=== PATIENT | female | born 1985 | race Caucasian/White ===

== ENCOUNTER 2017-11-17 17:49 | Emergency (ER) | payer MEDICAID, OTHER ==
[~2017-11-17] VITALS: Ht 5367.7 cm; Wt 71.7 kg
[~2017-11-17 17:49] MED LIST: CHLO25CA10 PO; LORA-269 PO; SELE120S3 TP
[2017-11-17] MEDS ORDERED: ketorolac trometh inj. 60 MG/2 ML VIAL IM ONE (18:50)
[2017-11-17] MEDS ORDERED: TRAM50TA2 PO (18:50)
[2017-11-17] MEDS ORDERED: DICL50TA8 PO (18:50)
[2017-11-17] MEDS ORDERED: CYCL-1 PO (18:50)
[2017-11-17] MEDS ORDERED: HYDROcodone/acetaminophen 5mg/325mg tablet PO ONE (18:50)
[2017-11-17 19:14] VITALS: BP 141/83
== END 2017-11-17 19:05 | disposition home or self-care (01) ==
LOC: ER 17:49
DX: M54.5 Low back pain (principal); F17.200 Nicotine dependence, unspecified, uncomplicated; F15.90 Other stimulant use, unspecified, uncomplicated; Z88.8 Allergy status to other drugs, medicaments and biological substances
CPT/HCPCS: 96372; 99283; J1885

== ENCOUNTER 2017-12-16 15:01 | Emergency (ER) | payer MEDICAID, OTHER ==
[~2017-12-16] VITALS: Ht 162.6 cm; Wt 87.6 kg
[~2017-12-16 15:01] MED LIST changes: +CYCL-1 PO; +DICL50TA8 PO; +TRAM50TA2 PO
[2017-12-16 16:46] VITALS: BP 151/93
[2017-12-16] MEDS ORDERED: LORA1TAB PO (16:54)
[2017-12-16] MEDS ORDERED: LORazepam 1 MG tablet PO ONE (16:55)
== END 2017-12-16 17:58 | disposition home or self-care (01) ==
LOC: ER 15:02
DX: F41.9 Anxiety disorder, unspecified (principal); F32.9 Major depressive disorder, single episode, unspecified; F15.10 Other stimulant abuse, uncomplicated; Z88.8 Allergy status to other drugs, medicaments and biological substances; Z79.899 Other long term (current) drug therapy
CPT/HCPCS: 93005; 99284

== ENCOUNTER 2018-05-17 20:13 | Emergency (ER) | payer MEDICAID, OTHER ==
[~2018-05-17] VITALS: Ht 162.6 cm; Wt 80.0 kg
[~2018-05-17 20:13] MED LIST changes: -TRAM50TA2 PO
[2018-05-17] MEDS ORDERED: HYDR-565 PO (20:39)
[2018-05-17] MEDS ORDERED: HYDROcodone/acetaminophen 5mg/325mg tablet PO ONE (20:40)
[2018-05-17 20:57] VITALS: BP 132/99
== END 2018-05-17 20:58 | disposition home or self-care (01) ==
LOC: ER 20:14
DX: S61.011A Laceration without foreign body of right thumb without damage to nail, initial encounter (principal); F15.90 Other stimulant use, unspecified, uncomplicated; Z88.8 Allergy status to other drugs, medicaments and biological substances; Z79.899 Other long term (current) drug therapy; Z79.1 Long term (current) use of non-steroidal anti-inflammatories (NSAID); X58.XXXA Exposure to other specified factors, initial encounter; Y93.89 Activity, other specified; Y92.89 Other specified places as the place of occurrence of the external cause; Y99.8 Other external cause status
CPT/HCPCS: 99283

== ENCOUNTER 2018-05-23 20:14 | Emergency (ER) | payer OTHER ==
[~2018-05-23] VITALS: Ht 162.6 cm; Wt 81.8 kg
[2018-05-23 20:20] VITALS: BP 129/84
[2018-05-23] MEDS ORDERED: HYDROcodone/acetaminophen 10/325mg tab PO ONE (21:15)
[2018-05-23] MEDS ORDERED: HYDR-3965 PO (21:31)
[2018-05-23] MEDS ORDERED: CEPH500C5 PO (21:31)
== END 2018-05-23 21:48 | disposition home or self-care (01) ==
LOC: ER 20:15
DX: S61.011D Laceration without foreign body of right thumb without damage to nail, subsequent encounter (principal); L08.9 Local infection of the skin and subcutaneous tissue, unspecified; N39.0 Urinary tract infection, site not specified; F41.9 Anxiety disorder, unspecified; F32.9 Major depressive disorder, single episode, unspecified; F15.90 Other stimulant use, unspecified, uncomplicated; Z88.1 Allergy status to other antibiotic agents; Z88.6 Allergy status to analgesic agent; Z88.8 Allergy status to other drugs, medicaments and biological substances; Z79.899 Other long term (current) drug therapy; X58.XXXD Exposure to other specified factors, subsequent encounter
CPT/HCPCS: 99283